=== PATIENT | male | born 1945 | race Caucasian/White ===

== ENCOUNTER 2022-10-18 13:08 | Emergency (ER) | payer MEDICARE ==
[~2022-10-18] VITALS: Ht 195.6 cm; Wt 79.5 kg
[2022-10-18] MEDS ORDERED: NS 1,000 ML IV ONE (13:40)
[2022-10-18] MEDS ORDERED: METOCLOPRAMIDE INJ 10MG/2ML VIAL IV ONE (13:40)
[2022-10-18 14:00] LABS: HEMATOCRIT 30.9 % (42.0-52.0); HEMOGLOBIN 10.5 g/dl (13.5-17.5); MEAN CORPUSCULAR HEMOGLOBIN 32.5 pg (27.0-33.0); MEAN CORPUSCULAR VOLUME 95.7 fl (80.0-96.0); PLATELET COUNT, AUTOMATED 423 10^3/uL (150-450); RED BLOOD COUNT 3.23 10^6/uL (4.30-6.10); WHITE BLOOD COUNT 2.6 10^3/uL (4.0-10.0)
[2022-10-18 14:22] LABS: LIPASE 22 U/L (12-53)
[2022-10-18 14:24] LABS: ALBUMIN 3.1 G/DL (3.2-5.2); ALKALINE PHOSPHATASE 103 U/L (46-116); ALT/SGPT 33 U/L (7.0-40); AST/SGOT 25 U/L (<34); BILIRUBIN,DIRECT 0.2 MG/DL (<0.4); BILIRUBIN,TOTAL 0.7 MG/DL (0.3-1.2); BLOOD UREA NITROGEN 24 MG/DL (9-23); CALCIUM LEVEL 8.6 MG/DL (8.3-10.6); CARBON DIOXIDE LEVEL 26 MMOL/L (20-31); CHLORIDE LEVEL 106 MMOL/L (98-107); CREATININE FOR GFR 0.78 MG/DL (0.70-1.30); GLOMERULAR FILTRATION RATE > 60.0 (>42); GLUCOSE, FASTING 110 MG/DL (74-106); POTASSIUM SERUM 4.6 MMOL/L (3.5-5.1); SODIUM LEVEL 139 MMOL/L (136-145); TOTAL PROTEIN 5.7 G/DL (5.7-8.2)
[2022-10-18 14:32] LABS: ATYPICAL LYMPH 12 % (0-5); BASOPHILS 3 % (0-1); LYMPHOCYTES 18 % (16-44); MONOCYTES 9 % (0-5); NEUTROPHILS 58 % (28-66)
[2022-10-18 14:33] LABS: PLATELET ESTIMATE INCREASED (NORMAL); POLYCHROMASIA 1+
[2022-10-18] MEDS ORDERED: PROT1TAB2 PO (15:29)
[2022-10-18] MEDS ORDERED: ONDA-83 PO (15:29)
[2022-10-18 15:59] VITALS: BP 132/72; TEMP 98; O2SAT 100
[2022-10-18] MEDS ORDERED: CEFU50TA PO (16:33)
== END 2022-10-18 16:51 | disposition home or self-care (01) ==
LOC: EDBD 13:08 → M ED 13:08
DX: R11.2 Nausea with vomiting, unspecified (principal); R19.7 Diarrhea, unspecified